=== PATIENT | male | born 2000 | race Caucasian/White ===

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

== ENCOUNTER 2023-08-13 14:21 | Emergency (ER) | payer MEDICAID ==
[~2023-08-13] VITALS: Ht 165.1 cm; Wt 73.0 kg
[2023-08-13 14:28] VITALS: O2SAT 94
[2023-08-13] MEDS ORDERED: SODIUM CHLORIDE 0.9% 1,000 ML IV ONE (14:30)
[2023-08-13] MEDS ORDERED: LEVETIRACETAM 500MG PREMIX 100 ML IV ONE (14:30)
[2023-08-13] MEDS ORDERED: KETOROLAC 30MG/ML VIAL IV STA (14:33)
[2023-08-13] MEDS ORDERED: SODIUM CHLORIDE 0.9% 1000ML BAG (SEPSIS BOLUS) IV ONE (14:45)
[2023-08-13 15:35] LABS: BASOPHILS % 0.6 % (0.0-2.0); EOSINOPHILS % 0.4 % (0.0-5.0); HEMATOCRIT. 45.3 % (42.0-52.0); HEMOGLOBIN. 15.5 g/dL (14.0-18.0); LYMPHOCYTES % 10.3 % (20.0-50.0); MEAN CORPUSCULAR HEMOGLOBIN 30.5 pg (28.0-32.0); MEAN CORPUSCULAR HGB CONC 34.3 g/dL (31.0-37.0); MEAN CORPUSCULAR VOLUME 88.8 fL (80.0-94.0); MEAN PLATELET VOLUME 7.5 fl (7.4-10.4); MONOCYTES % 11.2 % (2.0-8.0); NEUTROPHILS % 77.5 % (40.0-76.0); PLATELET 326 x1000/uL (130-400); RED CELL DISTRIBUTION WIDTH 13.1 % (11.6-14.6); WHITE BLOOD COUNT 8.7 x1000/uL (4.5-11.0)
[2023-08-13 15:39] LABS: PROTHROMBIN TIME 11.2 sec (9.6-11.0)
[2023-08-13 15:44] LABS: ALANINE AMINOTRANSFERASE 95 IU/L (10-49); ALBUMIN 4.7 g/dL (3.2-4.8); ASPARTATE AMINOTRANSFERASE 40 IU/L (<34); BILIRUBIN TOTAL 0.3 mg/dL (0.1-1.0); CALCIUM 9.1 mg/dL (8.7-10.4); CARBON DIOXIDE 21 mEq/L (21-32); CHLORIDE 107 mEq/L (98-107); CREATININE 0.7 mg/dL (0.6-1.3); GLUCOSE 92 mg/dL (70-105); POTASSIUM 3.8 mEq/L (3.5-5.1); SODIUM 141 mEq/L (136-145); UREA NITROGEN BLOOD 6 mg/dL (9-23)
[2023-08-13 17:20] VITALS: BP 119/77; PULSE 88; RESP 14; TEMP 98.1
== END 2023-08-13 17:20 | disposition home or self-care (01) ==
LOC: ER 14:21 → CANBEDREQ 17:58
DX: R56.9 Unspecified convulsions (principal)
CPT/HCPCS: 99285; 96365; 71045; 96375; 80053; 83880; 83605; 85025; 85610; 87040; 36415; 84145; 93005; J1953; J1885; J7030